=== PATIENT | male | born 1970 | race Caucasian/White ===

== ENCOUNTER 2016-07-16 10:49 | Outpatient (CLI) | payer MEDICARE ==
--- NOTE | 2016-07-16 14:55 | RAD ---
PA AND LATERAL CHEST: Date: 07/16/16 HISTORY: Chest congestion, which has been ongoing for a couple of months. FINDINGS: The cardiac silhouette and pulmonary vasculature are within normal limits. Lungs are clear. Osseous structures are intact. IMPRESSION: No acute cardiopulmonary process. POS: [facility]
== END 2016-07-16 10:50 | disposition home or self-care (01) ==
LOC: MADRAD 10:49
PROVIDERS: ATTEND Family Medicine
DX: R09.89 Other specified symptoms and signs involving the circulatory and respiratory systems (principal)
CPT/HCPCS: 71020

== ENCOUNTER 2016-09-09 10:46 | Outpatient (CLI) | payer MEDICARE ==
[2016-09-09 11:24] LABS: #Basophils 0.3 thou/uL (0.0-0.2); #Eosinphils 0.3 thou/uL (0.0-0.7); #Lymphocytes 3.8 thou/uL (1.20-3.40); #Neutrophils 10.3 thou/uL (1.40-6.50); %Basophils 1.7 % (0.0-1.0); %Eosinophils 1.6 % (0.0-10.0); %Lymphocytes 24.5 % (21.0-51.0); %Monocytes 6.3 % (0.0-10.0); %Neutrophils 65.9 % (42.0-75.0); Mean Corpuscular HGB CONC 33.7 g/dL (32.0-36.0); Mean Corpuscular Hemoglobin 30.8 pg (27.0-31.0); Mean Corpuscular Volume 91.5 fl (80.0-94.0); Mean Platelet Volume 8.7 fL (7.4-10.4); Platelet Count 260 thou/uL (130-400); RBC Distribution Width 11.7 % (11.5-14.5); Red Blood Cell (RBC) Count 4.87 mill/uL (4.70-6.10); White Blood Cell (WBC) Count 15.7 thou/uL (4.8-10.8)
[2016-09-09 11:35] LABS: Hemoglobin A1c 5.2 % (4.0-6.0)
[2016-09-09 11:37] LABS: ALT (SGPT) 13 U/L (0-55); AST (SGOT) 14 U/L (5-34); Albumin 4.4 g/dL (3.5-5.0); Alkaline Phosphatase 123 U/L (40-150); Anion Gap 13 mmol/L (10-20); BUN (Urea Nitrogen) 13 mg/dL (8.9-20.6); Bilirubin, Total 0.4 mg/dL (0.2-1.2); Calc. Creatinine Clearance 0 mL/min (70-130); Calcium 9.7 mg/dL (7.8-10.44); Carbon Dioxide 25 mmol/L (22-29); Cardiac Risk 7.3 (Less than 4.5); Chloride 105 mmol/L (98-107); Cholesterol 232 mg/dL (< 200 Desired); Estimated GFR-MDRD 90; Glucose 85 mg/dL (70-105); HDL Cholesterol 32 mg/dL (>60 Neg Risk); LDL Cholesterol, Calculated 143 mg/dL; Potassium 4.1 mmol/L (3.5-5.1); Protein, Total 7.4 g/dL (6.0-8.3); Sodium 139 mmol/L (136-145); Triglycerides 285 mg/dL (Less than 150)
[2016-09-09 12:33] LABS: Thyroid Stimulating Hormone 1.2727 uIU/mL (0.35-4.94); Vitamin D, 25 Hydroxy 18.8 ng/mL (> 30.0)
== END 2016-09-09 10:47 | disposition home or self-care (01) ==
LOC: MADLABBHPM 10:46
PROVIDERS: ATTEND Family Medicine
DX: Z00.00 Encounter for general adult medical examination without abnormal findings (principal); R53.83 Other fatigue; I10 Essential (primary) hypertension
CPT/HCPCS: 36415; 80053; 80061; 82306; 83036; 84443; 85025

== ENCOUNTER 2017-01-17 12:09 | Outpatient (CLI) | payer MEDICARE ==
[2017-01-17 13:11] LABS: ALT (SGPT) 11 U/L (8-55); AST (SGOT) 12 U/L (5-34); Albumin 4.1 g/dL (3.5-5.0); Alkaline Phosphatase 98 U/L (40-150); Anion Gap 13 mmol/L (10-20); BUN (Urea Nitrogen) 9 mg/dL (8.9-20.6); Bilirubin, Total 0.3 mg/dL (0.2-1.2); Calc. Creatinine Clearance 0 mL/min (70-130); Calcium 9.5 mg/dL (7.8-10.44); Carbon Dioxide 24 mmol/L (22-29); Cardiac Risk 6.1 (Less than 4.5); Chloride 108 mmol/L (98-107); Cholesterol 200 mg/dl (< 200 Desired); Estimated GFR-MDRD Greater than 90; Globulin 3.3 g/dL (2.4-3.5); Glucose 71 mg/dL (70-105); HDL Cholesterol 33 mg/dL (>60 Neg Risk); LDL Cholesterol, Calculated 133 mg/dL; Potassium 4.1 mmol/L (3.5-5.1); Protein, Total 7.4 g/dL (6.0-8.3); Sodium 141 mmol/L (136-145); Triglycerides 169 mg/dL (Less than 150)
== END 2017-01-17 12:10 | disposition home or self-care (01) ==
LOC: MADLABBHPM 12:09
PROVIDERS: ATTEND Family Medicine
DX: E78.5 Hyperlipidemia, unspecified (principal); E55.9 Vitamin D deficiency, unspecified; I10 Essential (primary) hypertension
CPT/HCPCS: 36415; 80053; 80061; 82306

== ENCOUNTER 2023-11-03 00:17 | Emergency (ER) | payer MEDICARE ==
[2023-11-03] MEDS ORDERED: Dexamethasone 10 MG/ML VIAL ONE (00:46)
[2023-11-03] MEDS ORDERED: Ketorolac Tromethamine 10 MG TAB ONE (00:46)
[2023-11-03] MEDS ORDERED: Amoxicillin/Potassium Clav 875 MG TAB ONE (00:46)
== END 2023-11-03 00:58 | disposition home or self-care (01) ==
LOC: MADERS 00:17
DX: K04.7 Periapical abscess without sinus (principal); F17.210 Nicotine dependence, cigarettes, uncomplicated
CPT/HCPCS: 96372; 99283; J1100